=== PATIENT | female | born 1995 | race Caucasian/White ===

== ENCOUNTER → 2017-11-01 | Outpatient (CLI) | payer OTHER ==
[~2017-11-01] MED LIST: ESCI10TA8 PO; ESCI20TA38 PO; FLU30SYR8 IM ONLY; FLU60SYR30 IM ONLY; MECL12.5 PO; NORG1TAB17 PO; PRED2.5T6 PO; SUMA25TA26 PO; VENL150C3 PO; VENL37.514 PO; VENL75TA12 PO
--- NOTE | 2017-11-01 15:08 | RADIOLOGY IMAGING REPORT ---
FACILITY: [facility] PATIENT NAME: Charline Nelson : 1995 MR: [id number] V: [id number] EXAM DATE: ORDERING PHYSICIAN: ANIL DUMONT TECHNOLOGIST: Location: [facility] Patient: Charline Nelson : 1995 Visit/Account:[id number] Date of Sevice: 11/01/2017 3 views cervical spine Indication: Neck pain and remote injury. Comparison: None available. Findings: The prevertebral soft tissues are within normal limits. The odontoid is unremarkable. The vertebral body heights are well maintained. IMPRESSION: 1. No acute osseous or acute alignment abnormality of the cervical spine on this examination. Report Dictated By: Jacinto Motley MD at 11/01/2017 3:03 PM Report E-Signed By: Jacinto Motley MD at 11/01/2017 3:04 PM WSN:[email or web address]
== END ==
LOC: RAD 12:09
PROVIDERS: ATTEND Family Medicine
DX: M54.2 Cervicalgia (principal)
CPT/HCPCS: 72040